=== PATIENT | female | born 1960 | race Caucasian/White ===

== ENCOUNTER 2016-08-09 12:38 | Emergency (ER) | payer BC ==
[2016-08-09 12:58] VITALS: RESP 20; TEMP 98.4; O2SAT 97
--- NOTE | 2016-08-09 14:39 | C.PDOC ---
History Of Present Illness 56 y/o female presents to the ED with complaints of elevated BP. Pt denies chest pain, SOB, headache or any complaints at this time. Pt worried prompting ED visit. Pt on blood pressure medication, last took this morning. Time Seen by Provider: 08/09/16 13:44 Chief Complaint (Nursing): High Blood Pressure History Per: Patient History/Exam Limitations: no limitations Associated Symptoms: denies: Chest Pain, Headache Quality Of Symptoms: Asymptomatic Severity: Mild Recent travel outside of the [place]: No Past Medical History Reviewed: Historical Data, Nursing Documentation, Vital Signs Vital Signs: Last Vital Signs Temp 98.4 F 08/09/16 14:50 Pulse 84 08/09/16 14:50 Resp 20 08/09/16 14:50 BP 149/88 08/09/16 14:50 Pulse Ox 97 08/09/16 15:01 Family History: States: Unknown Family Hx - Social History Hx Alcohol Use: Yes Hx Substance Use: No - Immunization History Hx Tetanus Toxoid Vaccination: No Hx Influenza Vaccination: No Review Of Systems Except As Marked, All Systems Reviewed And Found Negative. Constitutional: Negative for: Fever, Chills Cardiovascular: Negative for: Chest Pain Respiratory: Negative for: Shortness of Breath Neurological: Negative for: Headache Physical Exam - Physical Exam Appears: Non-toxic, No Acute Distress Skin: Warm, Dry, No Rash Head: Atraumatic, Normacephalic Neck: Normal, Normal ROM, Supple Chest: Symmetrical Cardiovascular: Rhythm Regular, No Murmur Respiratory: Normal Breath Sounds, No Rales, No Rhonchi, No Wheezing Gastrointestinal/Abdominal: Normal Exam, Soft, No Tenderness Extremity: Normal ROM, No Pedal Edema Extremity: Bilateral: Atraumatic Neurological/Psych: Oriented x3, Normal Speech ED Course And Treatment ECG: Interpreted By Me, Viewed By Me ECG Rhythm: Sinus Rhythm Rate From EC (BPM) O2 Sat by Pulse Oximetry: 97 (room air) Pulse Ox Interpretation: Normal Disposition - Disposition Referrals: Louisa Silverio MD [Medical Doctor] - Disposition: HOME/ ROUTINE Disposition Time: 15:00 Condition: GOOD Prescriptions: amLODIPine [Norvasc] 1 tab PO DAILY #30 tab Instructions: Chronic Hypertension (ED) - Clinical Impression Clinical Impression: BP (high blood pressure) - Scribe Statement The provider has reviewed the documentation as recorded by the Scribe Jim Patel Provider Attestation: All medical record entries made by the Noe were at my direction and personally dictated by me. I have reviewed the chart and agree that the record accurately reflects my personal performance of the history, physical exam, medical decision making, and the department course for this patient. I have also personally directed, reviewed, and agree with the discharge instructions and disposition.
--- NOTE | 2016-08-09 14:57 | C.PDOC ---
Time Seen by Provider: 08/09/16 13:44 Chief Complaint (Nursing): High Blood Pressure Past Medical History Vital Signs: Last Vital Signs Temp 98.4 F 08/09/16 12:57 Pulse 72 08/09/16 12:57 Resp 20 08/09/16 12:57 BP 147/91 H 08/09/16 12:57 Pulse Ox 97 08/09/16 12:57 - Social History Hx Alcohol Use: Yes Hx Substance Use: No - Immunization History Hx Tetanus Toxoid Vaccination: No Hx Influenza Vaccination: No ED Course And Treatment O2 Sat by Pulse Oximetry: 97 Disposition - Disposition Referrals: Louisa Silverio MD [Medical Doctor] - Disposition: HOME/ ROUTINE Disposition Time: 14:57 Condition: GOOD Prescriptions: amLODIPine [Norvasc] 1 tab PO DAILY #30 tab Instructions: Chronic Hypertension (ED) - Clinical Impression Clinical Impression: Accelerated hypertension
[2016-08-09 14:59] VITALS: BP 149/88; PULSE 84
== END 2016-08-09 15:07 | disposition home or self-care (01) ==
LOC: C.ER 12:38
DX: I10 Essential (primary) hypertension (principal)